=== PATIENT | male | born 1990 | race Caucasian/White ===

== ENCOUNTER 2023-04-05 17:32 | Inpatient (IN) | payer SELFPAY ==
[2023-04-05 18:27] VITALS: BMI 25.8
[2023-04-05] MEDS ORDERED: BENZONATATE 200 MG CAPSULE PO PRN (21:07)
[2023-04-05] MEDS ORDERED: BENZOCAINE/MENTHOL (CHLORASEPTIC ) LOZENGE MM PRN (21:07)
[2023-04-05] MEDS ORDERED: IBUPROFEN 600 MG TABLET (FP) PO PRN (21:07)
[2023-04-05] MEDS ORDERED: ACETAMINOPHEN 325 MG TABLET (FP) PO PRN (21:07)
[2023-04-05] MEDS ORDERED: IBUPROFEN 400 MG TABLET (FP) PO PRN (21:07)
[2023-04-05] MEDS ORDERED: POLYETHYLENE GLYCOL (HEALTHYLAX) 3350 17 GM PACKET PO PRN (21:07)
[2023-04-05] MEDS ORDERED: BISMUTH SUBSALICYLATE 524 MG/30 ML PO PRN (21:07)
[2023-04-05] MEDS ORDERED: MAG HYDROX/AL HYDROX/SIMETH 30 ML UNIT-DOSE CUP PO PRN (21:07)
[2023-04-05] MEDS ORDERED: NALOXONE HCL (KLOXXADO) 8 MG SPRAY NS PRN (21:07)
[2023-04-05] MEDS ORDERED: guaiFENesin 600 MG TABLET.ER (FP) PO PRN (21:07)
[2023-04-05] MEDS ORDERED: LOPERAMIDE HCL 2 MG CAPSULE PO PRN (21:07)
[2023-04-05] MEDS ORDERED: MAGNESIUM HYDROX 2400MG/30ML ORAL SUSPENSION 30 ML CUP PO PRN (21:07)
[2023-04-05] MEDS ORDERED: NALOXONE HCL 0.4 MG/ML VIAL IM PRN (21:07)
[2023-04-05] MEDS ORDERED: cloNIDine HCL 0.1 MG TABLET PO ONE (21:15)
[2023-04-05] MEDS ORDERED: cloNIDine HCL 0.1 MG TABLET ONE (21:39)
[2023-04-05] MEDS ORDERED: hydrOXYzine PAMOATE 25 MG CAPSULE (FP) PO ONE (21:39)
[2023-04-05] MEDS: hydrOXYzine PAMOATE 25 MG CAPSULE (FP) PO PRN (21:41)
[2023-04-05] MEDS: MELATONIN 5 MG TABLETS PO SCH (22:44)
[2023-04-05] MEDS: THIAMINE HCL 100 MG TABLET (FP) PO SCH (22:45)
[2023-04-05] MEDS: ONDANSETRON *ODT* 4 MG TABLET SL PRN (22:46)
[2023-04-06] MEDS: ONDANSETRON *ODT* 4 MG TABLET SL PRN (06:59)
[2023-04-06] MEDS: hydrOXYzine PAMOATE 25 MG CAPSULE (FP) PO PRN ×2 (06:59→21:33)
[2023-04-06] MEDS: DICYCLOMINE HCL 10 MG CAPSULE PO PRN ×2 (08:59→16:51)
[2023-04-06 10:20] LABS: POTASSIUM 3.9 mmol/L (3.5-5.1)
[2023-04-06 10:28] LABS: ALBUMIN 3.5 g/dl (3.4-5.0); CALCIUM 8.6 mg/dL (8.5-10.1)
[2023-04-06 10:29] LABS: BLOOD UREA NITROGEN 18.8 mg/dL (7-18)
[2023-04-06 10:31] LABS: CREATININE 0.9 mg/dL (0.55-1.3)
[2023-04-06 10:32] LABS: TOT PROT 6.2 g/dl (6.4-8.2)
[2023-04-06] MEDS: PRENATAL VITAMINS W/ FOLIC ACID TABLET (FP) PO SCH (10:35)
[2023-04-06 10:39] LABS: HEMATOCRIT 39.1 % (35.4-49); HEMOGLOBIN 13.3 GM/dL (11.7-16.9); MCH 28.5 pg (25.7-33.7); MCHC 34.1 g/dl (32.0-35.9); MEAN CELL VOLUME 83.7 fl (80-96); MEAN PLT VOLUME 8.2 fl (7.5-11.1); PLATELET COUNT 251 10^3/uL (134-434); RBC 4.67 M/mm3 (4.00-5.60); WHITE BLOOD COUNT 9.4 K/mm3 (4.0-10.0)
[2023-04-06] MEDS: METHOCARBAMOL 500 MG TABLET PO PRN (16:51)
[2023-04-06] MEDS: THIAMINE HCL 100 MG TABLET (FP) PO SCH (21:32)
[2023-04-06] MEDS: MELATONIN 5 MG TABLETS PO SCH (21:33)
[2023-04-07] MEDS: METHOCARBAMOL 500 MG TABLET PO PRN (06:19)
[2023-04-07 09:49] VITALS: BP 119/59; PULSE 60; RESP 18; TEMP 97.3
[2023-04-07] MEDS: PRENATAL VITAMINS W/ FOLIC ACID TABLET (FP) PO SCH (10:32)
== END 2023-04-07 09:35 | disposition home or self-care (01) | DRG 773 ==
LOC: YASAS 17:32 → Y6N 21:55
PROVIDERS: ADMIT Allergy & Immunology; ATTEND Surgery
PROC: HZ2ZZZZ Detoxification Services for Substance Abuse Treatment (ICD-10-PCS; principal; 2023-04-05)
DX: F11.20 Opioid dependence, uncomplicated (principal); Z87.891 Personal history of nicotine dependence
CPT/HCPCS: 36415; 80053; 85027; 86780; 87635; 93005; 93010; Q0162